=== PATIENT | female | born 1970 | race Hispanic/Latino ===

== ENCOUNTER 2018-04-07 15:35 | Emergency (ER) | payer SELFPAY ==
[2018-04-07] MEDS ORDERED: Diazepam 5 MG TAB ONE (16:02)
== END 2018-04-07 16:15 | disposition home or self-care (01) ==
LOC: MADERS 15:35
DX: F41.1 Generalized anxiety disorder (principal); F32.9 Major depressive disorder, single episode, unspecified
CPT/HCPCS: 99283